=== PATIENT | female | born 1965 | race Caucasian/White ===

== ENCOUNTER 2021-10-06 14:34 | Emergency (ER) | payer SELFPAY ==
--- NOTE | ~2021-10-06 | CT_ITS ---
EXAMINATION: CT abdomen pelvis w con DATE: 10/06/2021 17:28 INDICATION: supra/pelvic pain, UTI, Hx of sling TECHNIQUE: Computed tomography (CT) of the abdomen and pelvis was performed with 100 mL Omnipaque-300 intravenous contrast. Automated exposure control and iterative reconstruction technique were employe d. The dose-length product was 312.71 mGy-cm. COMPARISON: None. FINDINGS: Lower thorax: Unremarkable Liver: Normal. Biliary/Gallbladder: Cholelithiasis. No bile duct dilation. Pancreas: No mass or duct dilation. Spleen: Normal. Adrenals:No mass. Kidneys: No mass, stone, or hydronephrosis. GI tract: No small or large bowel dilation. Normal appendix. Mesentery/Peritoneum: No ascites, mass, or free air. Retroperitoneum: No mass. Pelvis: Mild bladder wall thickening and mucosal hyperemia. Uterus may be surgically absent. Soft Tissues: Soft tissues and body wall unremarkable. Bones: No acute osseous finding. IMPRESSION: Bladder findings may reflect cystitis in the appropriate clinical context. Otherwise no acute abdomin opelvic process. Reviewed, dictated and finalized at location K. IMPRESSION: Bladder findings may reflect cystitis in the appropriate clinical context. Othe rwise no acute abdominopelvic process.
[2021-10-06 14:37] VITALS: BP 149/100; PULSE 86; RESP 16; TEMP 36.6; O2SAT 100
[2021-10-06 15:36] LABS: Appearance Urine Clear (Clear); Bilirubin Urine Negative (Negative); Blood Urine 1+ (Negative); Glucose Urine UA Negative (Negative); Ketones Urine Negative (Negative); Leukocyte Esterase Ur 3+ LEU/UL (Negative); Nitrate Urine Negative (Negative); Protein Urine Negative (Negative); Specific Grav Ur <= 1.005 (1.001-1.035); Urobilinogen Urine 0.2 mg/dL (<2.0)
[2021-10-06 15:38] LABS: Add Urine Microscopic? YES; Color Urine Light Yellow (Yellow)
[2021-10-06 15:42] LABS: Bacteria Urine Trace /hpf; Mucus Urine Rare /lpf; RBC Urine 0-2 /hpf (0-2); WBC Clumps Urine Present /HPF; WBC Urine >75 /hpf
--- NOTE | 2021-10-06 16:28 | ED.FEMALEGU ---
HPI - Female Genitourinary General Chief complaint: [employer] <Inna Goddard PA-C - Last Filed: 10/06/21 19:33> Stated complaint: pelvic pain, feel like insides falling out <DELILAH Junior Last Filed: 10/06/21 19:33> Time Seen by Provider: 10/06/21 15:11 <Inna Goddard PA-C - Last Filed: 10/06/21 19:33> Source: patient <Inna Goddard PA-C - Last Filed: 10/06/21 19:33> Mode of arrival: ambulatory <DELILAH Junior Last Filed: 10/06/21 19:33> Limitations: no limitations <DELILAH Junior Last Filed: 10/06/21 19:33> History of Present Illness HPI Narrative: Patient is 56-year-old female who presents ED with report of pelvic pain. Patient reports having waxing and waning suprapubic and pelvic pain for the past 3 to 4 weeks. She has been taking Tylenol, naproxen, ibuprofen for this at home without much relief. She does note a history of bladder sling surgery with hysterectomy and rectocele repair 4 years ago. She also reports having dysuria, feeling of incomplete emptying, and positional urination, stating sometimes she can only urinate when bending forward. She was prescribed Macrobid 2 weeks ago and finished this about 1 week ago but denies any improvement of her urinary symptoms. She last took naproxen at 1 PM today. She denies any upper abdominal pain, low back pain, hematuria, nausea, vomiting, fever, chills, diarrhea, constipation, rectal bleeding. <Inna Goddard PA-C - Last Filed: 10/06/21 19:33> Related Data Allergies/Adverse reactions: Allergies Allergy/AdvReac Type Severity Reaction Status Date / Time No Known Allergies Allergy Unverified 03/09/18 07:28 <DELILAH Junior Last Filed: 10/06/21 19:33> Review of Systems Review of Systems: CONSTITUTIONAL: Denies fever, chills, or sweats. CARDIOVASCULAR: Denies chest pain. RESPIRATORY: Denies dyspnea. GASTROINTESTINAL: Reports suprapubic pain. Denies upper abdominal pain, nausea, vomiting, constipation, rectal bleeding, or diarrhea. GENITOURINARY: Reports pelvic pain, dysuria, incomplete emptying, positional voiding. Denies hematuria. MUSCULOSKELETAL: Denies low back pain. NEUROLOGIC: Denies headache, numbness, or weakness. <Inna Goddard PA-C - Last Filed: 10/06/21 19:33> All systems reviewed & are unremarkable except as noted in HPI and below <Inna Goddard PA-C - Last Filed: 10/06/21 19:33> PMFSH Past Medical History Medical History: Medical History (Updated 10/07/21 @ 00:01 by Ana Slaughter) No pertinent past medical history <Inna Goddard PA-C - Last Filed: 10/06/21 19:33> Surgical History Surgical History: Surgical History (Updated 10/06/21 @ 16:52 by Inna Goddard PA-C) History of repair of rectocele History of suburethral sling procedure <Inna Goddard PA-C - Last Filed: 10/06/21 19:33> Social History Social History: Social History (Updated 10/06/21 @ 17:07 by Inna Goddard PA-C) Smoking status: Never smoker <Inna Goddard PA-C - Last Filed: 10/06/21 19:33> Exam Narrative: GENERAL: Well appearing, well-nourished, non-toxic, in no acute distress. HEAD: Normocephalic, atraumatic. NECK: Supple. No adenopathy, no masses. RESPIRATORY: Airway patent, respirations nonlabored. Clear to auscultation bilaterally, no rales, rhonchi, wheezing. CARDIOVASCULAR: Regular rate and rhythm without murmurs, rubs, or gallops. Peripheral pulses 2+ and equal bilaterally. ABDOMINAL: Soft, minimal discomfort over suprapubic region, right inguinal region, nondistended, no hepatosplenomegaly. Normoactive BS. No CVA tenderness to percussion. MUSCULOSKELETAL: Moves all extremities. Strength/ROM intact without gross deformities. SKIN: Warm, dry, normal color. No rashes. NEURO: A&O X3. Speech clear. Cranial nerves II-XII grossly intact. Steady gait. No ataxic movements. PSYCHIATRIC: Appropriate mood and affect. Normal interaction. <Inna Goddard PA-C - Prateek Mahendra
[2021-10-06] MEDS: SODIUM CHLORIDE 0.9% IV 1,000 ML 999 ML IV CONT (16:38)
[2021-10-06 16:46] LABS: Basophils Absolute Auto 0.1 K/mm3 (0.0-0.1); Basophils Percent Auto 0.6 % (0.2-1.2); Eosinophils Absolute Auto 0.2 K/mm3 (0-0.3); Eosinophils Percent Auto 2.8 % (0-4.4); Hemoglobin 13.1 g/dL (12.0-15.0); Immature Granulocyte Absolute 0.01 K/mm3 (0.00-0.031); Immature Granulocyte Percent A 0.1 % (0-0.5); Lymphocytes Absolute Auto 1.76 K/mm3 (0.9-3.2); Lymphocytes Percent Auto 22.7 % (18.3-44.2); Mean Corpuscular HGB Conc 33.6 g/dl (32-36); Mean Corpuscular Hemoglobin 31.1 pg (26-34); Mean Corpuscular Volume 92.6 fl (80-100); Mean Platelet Volume 9.3 fl (7.4-10.4); Monocytes Absolute Auto 0.6 K/mm3 (0.1-0.6); Monocytes Percent Auto 7.3 % (2.6-8.5); Neutrophils Absolute Auto 5.2 K/mm3 (1.3-6.7); Neutrophils Percent Auto 66.5 % (45.5-73.1); Platelet Count Result 285 k/mm3 (150-375); Red Blood Count 4.21 M/mm3 (4.2-5.4); Red Cell Distribution Width 13.1 % (11.5-14.5); White Blood Count 7.8 K/mm3 (4.5-10.0)
[2021-10-06 17:01] LABS: Alanine Aminotransferase 20 U/L (6-35); Albumin Level 4.5 g/dL (3.5-5.1); Alkaline Phosphatase 65 U/L (38-126); Anion Gap 9 mmol/L (8-16); Aspartate Amino Transferase 31 U/L (14-36); Bilirubin,Total 0.8 mg/dL (0.2-1.3); Blood Urea Nitrogen 18 mg/dL (7-17); Carbon Dioxide 23 mmol/L (22-30); Chloride 107 mmol/L (98-107); Estimated Glomerular Filt Rate > 60; Glucose 88 mg/dL (65-110); Potassium 4.2 mmol/L (3.4-5.0); Sodium 139 mmol/L (137-145)
[2021-10-06 19:02] VITALS: BP 128/97; PULSE 78; RESP 18; O2SAT 98
== END 2021-10-06 19:07 | disposition home or self-care (01) ==
PROVIDERS: Emergency Medicine; Physician Assistant; Emergency Provider Emergency Medicine; PCP Internal Medicine
DX: N39.0 Urinary tract infection, site not specified (principal)
CPT/HCPCS: 36415; 74177; 80053; 81001; 85025; 87077; 87086; 87088; 87186; 96361; 96365; 99284; J0696; J7030; Q9967